=== PATIENT | male | born 1990 | race Caucasian/White ===

== ENCOUNTER → 2017-11-10 | Outpatient (CLI) | payer OTHER ==
[2017-11-10 08:53] LABS: COLLECTION METHOD DRY COLLECTION; SPECIMEN CONTAINER POLYPROPYLENE CUP; SPERM MORPHOLOGY SENT TO REFERENC LAB
[2017-11-10 10:13] LABS: COLLECTION SITE ON-SITE; DAYS ABSTINENT 4 DAYS (2-7)
[2017-11-10 10:14] LABS: SEMEN TESTING TIME 940
[2017-11-10 10:15] LABS: ROUND CELL CONC. 5.1 X10^6/mL (<5.1); SA DILUTION CNT 1 78; SA DILUTION CNT 2 93; SA DILUTION FACTOR 3; SA NONMOTILE CONCENTRATION 19.5 X10^6/mL; SA NONMOTILE COUNT1 202; SA NONMOTILE COUNT2 188; SA ROUND CELL COUNT1 53; SA ROUND CELL COUNT2 49; SA SPERM MOTILE CONC 6.2 X10^6mL; SPERM CONCENTRATION 25.7 X10^6/mL (>12.0)
[2017-11-10 10:18] LABS: TOTAL SPERM COUNT 41.1 X10^6 (>33.0)
[2017-11-10 10:19] LABS: SPERM PROGRESSION 3
[2017-11-10 10:38] LABS: PERCENT VIABLE 45 %; SEMEN VIABILITY STAINED 116; SEMEN VIABILITY UNSTAINED 95; TOTAL VIABILITY COUNT 211
[2017-11-10 10:39] LABS: PERCENT NONMOTILE SPERM 76 %; SPERM VIABILITY 58 % (>55)
[2017-11-13 09:06] LABS: COLLECTION METHOD DRY COLLECTION; SPECIMEN CONTAINER POLYPROPYLENE CUP; SPERM MORPHOLOGY SENT TO REFERENC LAB
[2017-11-13 10:14] LABS: COLLECTION SITE ON-SITE; DAYS ABSTINENT 3 DAYS (2-7); SEMEN TESTING TIME 945
[2017-11-13 10:15] LABS: SA NONMOTILE CONCENTRATION 13.6 X10^6/mL; SA NONMOTILE COUNT1 143; SA NONMOTILE COUNT2 129
[2017-11-13 10:16] LABS: ROUND CELL CONC. 2.2 X10^6/mL (<5.1); SA DILUTION CNT 1 89; SA DILUTION CNT 2 108; SA DILUTION FACTOR 2; SA ROUND CELL COUNT1 23; SA ROUND CELL COUNT2 20; SA SPERM MOTILE CONC 6.1 X10^6mL; SPERM CONCENTRATION 19.7 X10^6/mL (>12.0); SPERM PROGRESSION 3; TOTAL SPERM COUNT 35.5 X10^6 (>33.0)
[2017-11-13 10:40] LABS: PERCENT NONMOTILE SPERM 69 %; PERCENT VIABLE 26 %; SEMEN VIABILITY STAINED 168; SEMEN VIABILITY UNSTAINED 59; SPERM VIABILITY 49 % (>55); TOTAL VIABILITY COUNT 227
== END ==
LOC: LAB 08:09
PROVIDERS: ATTEND Urology
DX: N46.9 Male infertility, unspecified (principal)
CPT/HCPCS: 36415; 89320

== ENCOUNTER 2020-01-29 13:54 | Emergency (ER) | payer OTHER ==
[2020-01-29] MEDS ORDERED: DEXAMETHASONE SOD PHOS INJ 10 MG/1 ML VIAL IM ONE (14:09)
--- NOTE | 2020-01-29 14:14 | ER Document Report ---
HPI - HPI Time Seen by Provider: 01/29/20 14:09 Pain Level: 3 Notes: CHIEF COMPLAINT: Poison maggy HPI: 29-year-old male presenting for pruritic rash that is now spreading generally over the last 10 days. 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 States he developed a rash 7 or 8 days ago on the hands and forearms but then it progressed over the torso, groin, back. States he has had poison maggy before and it is very sensitive to it states that the last time he had it this bad he had to have a steroid shot ROS: See HPI - all other systems were reviewed and are otherwise negative Constitutional: no fever Eyes: no drainage, no blurred vision ENT: no runny nose Integumentary: + rash Allergy: no hives Musculoskeletal: no extremity pain MEDICATIONS: I agree with the patient medications as charted by the RN. ALLERGIES: I agree with the allergies as charted by the RN. PAST MEDICAL HISTORY/PAST SURGICAL HISTORY: Reviewed and agree as charted by RN. SOCIAL HISTORY: Reviewed and agree as charted by RN. FAMILY HISTORY: No significant familial comorbid conditions directly related to patient complaint EXAM: Reviewed vital signs as charted by RN. CONSTITUTIONAL: Alert and oriented and responds appropriately to questions. Well-appearing; well-nourished, mild distress secondary to itching HEAD: Normocephalic; atraumatic EYES: PERRL; Conjunctivae clear, sclerae non-icteric ENT: normal nose; no rhinorrhea; moist mucous membranes; pharynx without lesions noted, no uvula edema or deviation, no tonsillar hypertrophy, phonation normal NECK: Supple without meningismus CARD: symmetric distal pulses RESP: Normal chest excursion without splinting or tachypnea ABD/GI: non-distended BACK: The back appears normal EXT: Normal ROM in all joints; non-tender to palpation; no cyanosis, no effusions, no edema SKIN: Normal color for age and race; warm; dry; good turgor; multiple raised excoriated areas that are weeping on the wrists, bilateral forearms, across the anterior torso, bilateral inguinal region NEURO: Moves all extremities equally; Motor and sensory function intact PSYCH: The patient's mood and manner are appropriate. Grooming and personal hygiene are appropriate. MDM: 29-year-old male with rhus dermatitis. Will give Decadron shot here will place patient on steroids for the next 5 days. May continue to use Benadryl for itching. 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 Past Medical History - Social History Smoking Status: Former Smoker Frequency of alcohol use: Rare Drug Abuse: None Family History: Reviewed & Not Pertinent Patient has suicidal ideation: No Patient has homicidal ideation: No Vertical Provider Document - INFECTION CONTROL TRAVEL OUTSIDE OF THE [place] IN LAST 30 DAYS: No Course - Vital Signs Vital signs: Temp Pulse Resp BP Pulse Ox 98.0 F 108 H 130/92 H 100 01/29/20 13:59 01/29/20 13:59 01/29/20 13:59 01/29/20 13:59 Discharge - Discharge Clinical Impression: Rhus dermatitis Condition: Stable Disposition: HOME, SELF-CARE Instructions: Poison Maggy ([facility]) Additional Instructions: patient support assistant Zanfel or similar item at the pharmacy to wash the skin as discussed. Rinse, scrub the inflamed areas, leave on the skin for 5 minutes, rinse off. You may do this once or twice daily for the next week. This will help bind the oils. Take the steroids as prescribed. May continue to use Benadryl for itching, may use Caladryl. Follow-up PCP Prescriptions: Prednisone [Deltasone 20 mg Tablet] 2 tab PO DAILY 5 Days #10 tablet Referrals: MINA FUENTES MD [Primary Care Provider] - Follow up as needed
[2020-01-29 14:40] VITALS: BP 122/87
== END 2020-01-29 14:39 | disposition home or self-care (01) ==
LOC: ER 13:54
DX: L23.7 Allergic contact dermatitis due to plants, except food (principal); Z87.891 Personal history of nicotine dependence
CPT/HCPCS: 99283; 96372; J1100